=== PATIENT | female | born 1975 | race Caucasian/White ===

== ENCOUNTER → 2016-08-17 | Outpatient (CLI) | payer MEDICAID ==
--- NOTE | ~2016-08-17 | MY11 ---
[facility] A Service of [facility] RADIOLOGY TEXT RESULTS PATIENT: DIANA UNDERWOOD LOCATION: [facility] : 75 UNIT #: [id number] AGE: [address]: Justin Mccauley MD SEX: F ORDER DR: [id number] [place], [place] [address] [id number] O MR#: [id number] Acc #: [id number] NAME: DIANA UNDERWOOD : 1975 SEX: F STUDY DATE/TIME: 08/17/2016 14:53 UNIT: [facility] ROOM: STUDY DESCRIPTION: MY Mammogram Screening [address] Attending Physician: Justin Mccauley M.D. Ordering Physician: Justin Mccauley M.D. Primary Care Physician: Justin Mccauley M.D. MEDICAL IMAGING REPORT This report is preliminary unless electronic signature is present EXAM Bilateral digital screening mammogram with CAD device. DATE OF EXAM 08/17/2016 HISTORY Baseline mammogram. FINDINGS Digital imaging of each breast was completed utilizing a two-view examination of each breast in craniocaudal and mediolateral-oblique projections. Review and interpretation of digital mammograms include a second review in conjunction with FDA-approved CAD device. There is a normal parenchymal presentation bilaterally consistent with the patient's age. There are no breast masses imaged and no parenchymal asymmetry is visualized. There are no suspicious microcalcifications and I see no focal architectural disturbance. IMPRESSION Negative screening digital mammogram. One-year followup recommended. Patients over the age of 40 are entered into a reminder system with target due date for the next mammogram. A result letter will also be sent to the patient. BIRADS: 1 Negative. [facility] A Service of [facility] RADIOLOGY TEXT RESULTS PATIENT: DIANA UNDERWOOD LOCATION: [facility] : 75 UNIT #: [id number] AGE: [address]: Justin Mccauley MD SEX: F ORDER DR: Dictated by... Cameron Arambula M.D. THIS IS AN ELECTRONICALLY VERIFIED REPORT Cameron Arambula M.D. at 08/18/2016 8:30 AM VARUN/babatunde TD: 08/17/2016 17:28 JOB #: [id number] MEDICAL IMAGING REPORT Page 1 of 1 COPY
== END | disposition home or self-care (01) ==
LOC: CWCC 14:25
DX: Z12.31 Encounter for screening mammogram for malignant neoplasm of breast (principal)
CPT/HCPCS: G0202